=== PATIENT | male | born 1975 | race Caucasian/White ===

== ENCOUNTER → 2019-10-04 09:47 | Outpatient (BNVA) | payer BC, SELFPAY | PROVIDERS: Visit Provider Family Medicine | DX: M47.814 Spondylosis without myelopathy or radiculopathy, thoracic region (principal) | CPT/HCPCS: 72070 ==

== ENCOUNTER 2019-10-13 12:08 | Outpatient (CLI) | payer BC, SELFPAY ==
--- NOTE | 2019-10-13 12:46 | MR_ITS ---
WS: [id number] MRI THORACIC SPINE noncontrast. 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 COMPARISON: Thoracic spine radiograph 10/04/2019 TECHNIQUE: Multiplanar sequences are performed in sagittal and axial planes. Mild increase in the thoracic kyphosis. There is mild narrowing of the disc spaces throughout the tho racic spine. Hemangioma in the posterior T8 vertebral body. No marrow edema or fractures. There is ve ry mild anterior wedging of T8 and T7. T1-2: Normal. T2-3: Normal. T3-4: Normal. T4-5: Normal. T5-6: Normal. T6-7: Normal. T7-8: Very shallow RIGHT paracentral protrusion. No stenosis. T8-9: Mild bilateral facet joint arthropathy. No stenosis. T9-10: Mild bilateral facet joint arthritis. Mild bilateral foraminal stenosis. T10-11: Mild bilateral facet joint arthritis with mild foraminal stenosis. T11-12: Normal. Paraspinal soft tissues are negative. MR/MR thoracic spin wo con* [id number] IMPRESSION: 1. Mild increase in thoracic kyphosis with degenerative disc disease. 2. No significant stenosis. No disc protrusions.
--- NOTE | 2019-10-13 12:48 | XR_ITS ---
WS: [id number] [place] [id number] REASON FOR EXAM: PRE MRI ORBITS, PT WORKS WITH METAL FINDINGS: 3 views of the orbits show no definite foreign bodies in the orbits. XR/[place] [id number] IMPRESSION: No metal artifacts are seen in the orbits.
== END 2019-10-13 12:09 | disposition home or self-care (01) ==
LOC: RADWPI 12:16
PROVIDERS: Family Provider Family Medicine; PCP Family Medicine; Visit Provider Family Medicine
DX: Z01.818 Encounter for other preprocedural examination (principal); M47.814 Spondylosis without myelopathy or radiculopathy, thoracic region; M40.294 Other kyphosis, thoracic region; M51.34 Other intervertebral disc degeneration, thoracic region
CPT/HCPCS: 70030; 72146

== ENCOUNTER → 2020-05-16 14:00 | Outpatient (BNVA) | payer BC, SELFPAY | PROVIDERS: Family Provider Family Medicine; PCP Family Medicine; Visit Provider Family Medicine | DX: Z20.6 Contact with and (suspected) exposure to human immunodeficiency virus [HIV] (principal); E11.9 Type 2 diabetes mellitus without complications; Z20.2 Contact with and (suspected) exposure to infections with a predominantly sexual mode of transmission | CPT/HCPCS: 80053; 83036; 87806 ==

== ENCOUNTER → 2020-06-10 11:57 | Outpatient (BNVA) | payer BC, SELFPAY | PROVIDERS: Family Provider Family Medicine; PCP Family Medicine; Visit Provider Nurse Practitioner Family | DX: R73.9 Hyperglycemia, unspecified (principal); Z13.220 Encounter for screening for lipoid disorders | CPT/HCPCS: 80061; 83036 ==